=== PATIENT | male | born 1960 | race Caucasian/White ===

== ENCOUNTER 2024-07-19 00:05 | Emergency (ER) | payer MEDICARE, SELFPAY ==
[2024-07-19 00:12] VITALS: BP 156/100
--- NOTE | 2024-07-19 00:56 | ED.GENMED ---
History of Present Illness
General
Chief Complaint: Esophageal Problem
Source: patient
Exam Limitations: none
Time Seen by Provider: 07/19/24 00:49
History of Present Illness
History of Present Illness:
This is a 63 year old male that comes in with c/o feeling like something stuck in his throat. States that he eat about 2 hours ago and he tried to drink water but he spit it out and it wouldn't go down. States that he had Pierogies and vegetables.
States that this has never happened before. States that he started to panic. Denies any fever, chills, chest pain, SOB, abd pain, nausea, vomiting, diarrhea, headache, dizziness, urinary burning.
Past History
Past History
ED Past Medical History: HTN and Hypercholesterolemia
ED Past Surgical History: Other (Hernia)
Social History
Tobacco: Non-smoker
Alcohol: Daily (Beer 2)
Personal: Single
Living: alone
Review of Systems
Review of Systems
All Other Systems: ROS reviewed and negative except as documented in HPI and ROS
Constitutional: Reports no symptoms; Denies fever or chills
EENT: Reports other (Feels like something is caught in his throat)
Respiratory: Reports no symptoms; Denies cough or trouble breathing
Cardiac: Reports no symptoms; Denies chest pain
ABD/GI: Denies abdominal pain, nausea, vomiting or diarrhea
: Reports no symptoms
Musculoskeletal: Reports no symptoms
Skin: Reports no symptoms
Neurological: Reports no symptoms; Denies dizzy or headache
Psychiatric: Reports no symptoms
Phy Exam
General Physical Exam
General Presentation: no apparent distress
General age: appears stated age
General Skin: warm and dry
General Habitus: normal
General Mental: alert
General Hydration: appears well hydrated
ENT Exam
ENT Exam: TM's normal, pharynx normal and neck supple
Eye Exam
Eye Exam: EOMI
Cardiovascular Exam
Cardiovascular Exam: regular rate/rhythm, no edema, no murmur and normal peripheral pulses
Pulmonary Exam
Pulmonary Exam: lungs clear, no respiratory distress, no rales, chest non tender, no crackles, no rhonchi, no wheezing and no cough
Gastrointestinal Exam
Gastrointestinal Exam: normal bowel sounds, non tender, soft, no organomegaly, no pulsatile mass and non distended
Musculoskeletal Exam
Musculoskeletal Exam: full ROM and no edema
Skin Exam
Skin Exam: normal color, warm/dry, no rash and no petechia
Psychiatric Exam
Psychiatric Exam: normal mood/affect
Course
Orders/Labs/Results
Orders:
Orders
07/19/24 00:55
Glucagon [GlucaGen] 1 mg IV NOW STA
07/19/24 01:20
Alcohol Urgent
Complete Blood Count/With Diff Urgent
Comprehensive Metabolic Panel Urgent
Abnormal Lab Results
07/19/24
01:20
RBC 4.35 L 10^6/uL
(4.70-6.10)
Hct 37.7 L %
(39.0-52.0)
Absolute Lymphs (auto) 1.1 L 10^3/uL
(1.2-3.4)
Absolute Monos (auto) 0.7 H 10^3/uL
(0.1-0.6)
Lymphocytes % 16.4 L %
(20.5-51.1)
Monocytes % 10.5 H %
(1.7-9.3)
Glucose 134 H mg/dl
(70-99)
AST 65 H U/L
(17-59)
07/19/24 01:20
07/19/24 01:20
Hyperglycemia. AST elevation.
Vital Signs
Initial and Last Documented VS:
Initial Vital Signs
Temp Pulse Resp BP Pulse Ox
99.0 F 109 18 156/100 96
07/19/24 00:12 07/19/24 00:12 07/19/24 00:12 07/19/24 00:12 07/19/24 00:12
Last Documented Vital Signs
Temp Pulse Resp BP Pulse Ox
99.0 F 89 18 136/71 97
07/19/24 00:12 07/19/24 01:14 07/19/24 01:14 07/19/24 01:14 07/19/24 01:14
MDM/Problems Addressed
Differential Diagnosis Includes:
Food impaction, Scratch in esophagus
MDM/Problems Addressed:
This is a 63 year old male that comes in with c/o feeling like something stuck in his throat. States that this started 2 hours ago and he tried to drink water but he was unable to get the water down as he spit it back up.
Will check labs and given Glucagon
Back into see patient. Patient states that he thinks he feels better. Will try oral fluids
Patient was able to drink water without any difficulty. Will discharge home.
Chronic conditions affecting care:
NA
Acute Exacerbation and/or Progression of Chronic Illness:
NA
*Pulse Oximetry
Patient hypoxic: no
*EKG
Interpreted by ED Provider?: NA
Rate: EKG- N/A
*Exercise Physiologist Certified Interpretation
Rate: normal
Heart Rate: 88
Rhythm: sinus
*Critical Care Note
Total Time (30-74mins, 75-104mins- exclusive of procedures): Not Applicable
ED Attending Note
-
Portions of this chart may have been created with voice recognition software.� Occasional wrong word or��sound alike� substitutions may have occurred due to the inherent limitations of voice recognition software.
Discharge Plan
Departure
Patient Disposition: Home (Routine Discharge)
Date of Disposition: 07/19/24
Time of Disposition: 02:07
Patient with high blood pressure during this ER visit?: Yes
Condition: Good
Covid-19: Not Applicable
Discharge Problem:
feeling of food impaction
Instructions: Food Obstruction, BLOOD PRESSURE
Referrals:
Stephen Urias MD [Family Provider] - Call in 1-3 days for appt
Activity Restrictions/Additional Instructions:
As discussed, your blood work shows that your blood sugar is elevated but this is a nonfasting blood sugar. Your AST is elevated due to your alcohol use. You have been given IV medication here and if there was any food stuck it seems to have gone
down. Please increase your water intake to 8-8oz glasses daily. Follow up with the family doctor for recheck. IF YOU HAVE ANY OTHER CONCERNS PLEASE RETURN TO THE EMERGENCY ROOM.
Interventions
Interventions:
*Risk Screen - Suicide Last Done: 07/19/24 00:12
*General Assessment Last Done: 07/19/24 01:25
*Neglect/Abuse Screening Last Done: 07/19/24 00:12
*ED COVID-19 Vaccine History Last Done: 07/19/24 00:12
Discharge Date and Time
Print Language: MACEDONIAN
[2024-07-19 01:09] VITALS: BMI 28.6
[2024-07-19 01:14] VITALS: BP 136/71
[2024-07-19] MEDS: GlucaGen 1 MG IV (01:27)
[2024-07-19 01:33] LABS: % Basophils 0.6 % (0-2); % Immature Granulocytes 0.3 % (0-0.5); % Lymphocytes 16.4 % (20.5-51.1); % Monocytes 10.5 % (1.7-9.3); % Neutrophils 70.2 % (42.2-75.2); Absolute Eosinophils 0.1 10^3/uL (0-0.7); Absolute Lymphocytes 1.1 10^3/uL (1.2-3.4); Absolute Monocytes 0.7 10^3/uL (0.1-0.6); Absolute Neutrophils 4.5 10^3/uL (1.4-6.5); Hematocrit 37.7 % (39.0-52.0); Mean Corp Hgb Conc. 34.5 g/dL (33.0-37.0); Mean Corpuscular Hgb 29.9 pg (27.0-31.0); Mean Corpuscular Volume 86.7 fL (80.0-94.0); Mean Platelet Volume 9.7 fL (7.4-10.4); Nucleated Red Blood Cells % 0 % (-); Platelet Count 172 10^3/uL (130-400); Red Blood Cell Count 4.35 10^6/uL (4.70-6.10); Red Cell Dist. Width 13.5 % (11.5-14.5); White Blood Cell Count 6.5 10^3/uL (4.8-10.8)
[2024-07-19 01:41] LABS: ALT (SGPT) 43 U/L (0-50); AST (SGOT) 65 U/L (17-59); Albumin 4.3 g/dl (3.5-5.0); Alkaline Phosphatase 80 U/L (38-126); Blood Urea Nitrogen 15 mg/dl (9-20); Calcium 9.1 mg/dl (8.4-10.2); Carbon Dioxide 25 mmol/L (22-30); Chloride 103 mmol/L (98-107); Estimated Creatinine Clearance 84 ml/min; Glucose 134 mg/dl (70-99); Potassium 3.5 mmol/L (3.5-5.1); Sodium 144 mmol/L (135-145); Total Bilirubin 0.4 mg/dl (0.2-1.3); Total Protein 6.6 g/dl (6.3-8.2); eGFR > 60.00
[2024-07-19 01:57] LABS: Alcohol 200 mg/dl
== END 2024-07-19 02:26 | disposition home or self-care (01) ==
LOC: EMR 00:05
PROVIDERS: Clinical Nurse Specialist Family Health; EMERGENCY PHYSICIAN Emergency Medicine; FAMILY PHYSICIAN Family Medicine
DX: R09.A2 Foreign body sensation, throat (principal); I10 Essential (primary) hypertension
CPT/HCPCS: 99284; 96374; 80053; 82077; 85025; J1610

== ENCOUNTER → 2025-05-06 09:54 | Outpatient (REF) | payer MEDICARE, SELFPAY | LOC: HWRAD 09:54 | PROVIDERS: ATTENDING PHYSICIAN Physician Assistant | DX: Z13.6 Encounter for screening for cardiovascular disorders (principal) | CPT/HCPCS: 76770 ==